=== PATIENT | male | born 1980 | race Caucasian/White ===

== ENCOUNTER 2021-02-17 10:52 | Inpatient (IN) | payer OTHER ==
[2021-02-17] MEDS ORDERED: Sodium Chloride 0.9% 10 ML Syringe FLUSH PRN ×3 (10:58→14:26)
[2021-02-17] MEDS ORDERED: Prochlorperazine 10 MG/2 ML SDV IVPUSH ONE (11:03)
--- NOTE | 2021-02-17 11:05 | EDM.PDOC ---
ED HPI GENERAL MEDICAL PROBLEM - General Chief Complaint: Diabetic Complaint Stated Complaint: MED[facility] Time Seen by Provider: 02/17/21 10:54 Source of Information: Reports: Patient, EMS, RN Notes Reviewed History Limitations: Reports: No Limitations - History of Present Illness INITIAL COMMENTS - FREE TEXT/NARRATIVE: 40-year-old gentleman presents emergency department day complaint of nausea and vomiting, he is a type I diabetic states he just got sick last night has had difficulty through the night with nausea and vomiting his blood sugar has been running high initial EMS reports greater than 500 he states he has not had a blood sugar that high since initial diagnosis of diabetes. Denies any fever no shortness of breath no chest pain no diarrhea - Related Data Allergies Allergy/AdvReac Type Severity Reaction Status Date / Time codeine Allergy Cannot Verified 02/17/21 10:58 Remember Home Meds: Home Meds Insulin Glarg,Human.Rec.Analog [Lantus Solostar] 1 injection SQ BEDTIME 02/17/21 [History] Insulin Lispro [Humalog] 1 injection SQ TID 02/17/21 [History] metFORMIN [Glucophage] 1 tab PO DAILY PRN 02/17/21 [History] Past Medical History Endocrine/Metabolic History: Reports: Diabetes, Type I Social & Family History - Tobacco Use Tobacco Use Status *Q: Never Tobacco User ED ROS GENERAL - Review of Systems Review Of Systems: See Below Constitutional: Denies: Fever, Chills HEENT: Reports: No Symptoms Respiratory: Reports: No Symptoms Cardiovascular: Reports: No Symptoms GI/Abdominal: Reports: Nausea, Vomiting. Denies: Abdominal Pain : Reports: No Symptoms ED EXAM GENERAL NO PERIP PULSE - Physical Exam Exam: See Below Exam Limited By: No Limitations General Appearance: Alert, WD/WN, No Apparent Distress Respiratory/Chest: No Respiratory Distress, Lungs Clear, Normal Breath Sounds, No Accessory Muscle Use, Chest Non-Tender Cardiovascular: Regular Rate, Rhythm, No Murmur GI/Abdominal: Soft, Non-Tender Extremities: No Pedal Edema Course - Vital Signs Last Recorded V/S: Last Vital Signs Temp 97.9 F 02/17/21 11:06 Pulse 94 02/17/21 11:06 Resp 15 02/17/21 11:06 BP 139/45 L 02/17/21 11:06 Pulse Ox 100 02/17/21 11:06 - Orders/Labs/Meds Orders: Active Orders 24 hr Category Date Time Status Blood Glucose Check, Bedside [RC] STAT Care 02/17/21 10:58 Active Cardiac Monitoring [RC] CONTINUOUS Care 02/17/21 10:58 Active Communication Order [RC] STAT Care 02/17/21 10:58 Active Communication Order [RC] STAT Care 02/17/21 10:58 Active EKG Documentation Completion [RC] ASDIRECTED Care 02/17/21 12:17 Ordered Peripheral IV Care [RC] . DIRECTED Care 02/17/21 10:58 Active Abdomen Pelvis w Cont [CT] Stat Exams 02/17/21 12:17 Ordered Chest 1V Frontal [CR] Urgent Exams 02/17/21 12:16 Ordered CULTURE BLOOD [BC] Urgent Lab 02/17/21 11:20 Received CULTURE BLOOD [BC] Urgent Lab 02/17/21 11:20 Received Insulin Regular in 0.9 % NACL [Myxredlin in NS 100 UNIT Med 02/17/21 11:15 Active /100 ML] 100 unit in 100 ml IV ASDIRECTED Piperacillin/Tazobactam [Zosyn] 4.5 gm Med 02/17/21 12:17 Ordered Sodium Chloride 0.9% [Normal Saline] 100 ml IV ONETIME Sodium Chloride 0.9% [Normal Saline] 1,000 ml Med 02/17/21 11:15 Active IV ASDIRECTED Sodium Chloride 0.9% [Saline Flush] Med 02/17/21 10:58 Active 10 ml FLUSH ASDIRECTED PRN Vancomycin 1 gm Med 02/17/21 12:17 Ordered Sodium Chloride 0.9% [Normal Saline] 250 ml IV ONETIME Blood Culture x2 Reflex Set [OM.PC] Urgent Oth 02/17/21 10:58 Ordered Peripheral IV Insertion Adult [OM.PC] Stat Oth 02/17/21 10:58 Ordered EKG 12 Lead [EK] Stat Ther 02/17/21 12:16 Ordered Medication Orders Sodium Chloride (Normal Saline) 1,000 mls @ 500 mls/hr IV ASDIRECTED [facility] Last Admin: 02/17/21 11:25 Dose: 500 mls/hr Documented by: WALKER Insulin Regular in 0.9 % NACL (Myxredlin In Ns 100 Unit/100 Ml) 100 unit in 100 mls @ 10.796 mls/hr IV ASDIRECTED [facility] Last Admin: 02/17/21 11:25 Dose: 0.14 units/kg/hr, 10.796 mls/hr Documented by: WALKER Cosigned by: MEME Piperacillin Sod/Tazobactam (Sod 4.5 gm/ Sodium Chloride) 100 mls @ 100 mls/hr IV ONETIME ONE Stop: 02/17/21 13:16 Vancomycin HCl 1 gm/ Sodium (Chloride) 250 mls @ 150 mls/hr IV ONETIME ONE Stop: 02/17/21 13:56 Sodium Chloride (Sodium Chloride 0.9% 10 Ml Syringe) 10 ml FLUSH ASDIRECTED PRN PRN Reason: Keep Vein Open Last Admin: 02/17/21 11:26 Dose: 10 ml Documented by: WALKER Labs: Laboratory Tests 02/17/21 02/17/21 02/17/21 Range/Units 10:58 11:20 11:20 WBC 29.2 H (4.5-11.0) K/uL RBC 4.91 (4.30-5.90) M/uL Hgb 15.0 (12.0-15.0) g/dL Hct 42.7 (40.0-54.0) % MCV 87 (80-98) fL MCH 31 (27-31) pg MCHC 35 (32-36) % Plt Count 359 (150-400) K/uL Neut % (Auto) 89.9 H (36-66) % Lymph % (Auto) 2.6 L (24-44) % [place] % (Auto) 7.4 H (2-6) % Eos % (Auto) 0.0 L (2-4) % Baso % (Auto) 0.1 (0-1) % Puncture Site Rt brachial ABG pH 7.079 L* (7.350-7.450) ABG pCO2 13.6 L* (35.0-42.0) mmHg ABG pO2 133.0 H (75.0-100.0) mmHg ABG HCO3 3.8 L (22.0-26.0) mmol/L ABG Total CO2 3.7 L (23.0-27.0) mmol/L ABG O2 Saturation 97.5 (95.0-98.0) % ABG O2 Content 21.3 (15.0-23.0) %vol ABG Base Excess -26.5 mm/L ABG Hemoglobin 15.8 (13.5-18.0) g/dL ABG Oxyhemoglobin 95.4 % ABG Carboxyhemoglobin 0.9 (0.0-1.6) % ABG Methemoglobin 1.3 % Jeovanny Test Not performed O2 Delivery Device Room air Sodium (140-148) mmol/L Potassium (3.6-5.2) mmol/L Chloride (100-108) mmol/L Carbon Dioxide (21-32) mmol/L Anion Gap (5.0-14.0) mmol/L BUN (7-18) mg/dL Creatinine (0.8-1.3) mg/dL Est Cr Clr Drug Dosing mL/min Estimated GFR (MDRD) (>60) Glucose (74-106) mg/dL Lactic Acid (0.4-2.0) mmol/L Calcium (8.5-10.1) mg/dL Phosphorus (2.5-4.9) mg/dL Magnesium (1.8-2.4) mg/dL Total Bilirubin (0.2-1.0) mg/dL AST (15-37) U/L ALT (12-78) U/L Alkaline Phosphatase (46-116) U/L Total Protein (6.4-8.2) g/dL Albumin (3.4-5.0) g/dL Globulin (2.3-3.5) g/dL Albumin/Globulin Ratio (1.2-2.2) Procalcitonin ng/mL Urine Color Yellow (YELLOW) Urine Appearance Clear (CLEAR) Urine pH 5.0 (5.0-8.0) Ur Specific Jarrell 1.025 (1.008-1.030) Urine Protein 30 H (NEGATIVE) mg/dL Urine Glucose (UA) 500 H (NEGATIVE) mg/dL Urine Ketones 80 H (NEGATIVE) mg/dL Urine Occult Blood Moderate H (NEGATIVE) Urine Nitrite Negative (NEGATIVE) Urine Bilirubin Negative (NEGATIVE) Urine Urobilinogen 0.2 (0.2-1.0) EU/dL Ur Leukocyte Esterase Negative (NEGATIVE) Urine RBC 0-5 (0-5) Urine WBC Not seen (0-5) Ur Epithelial Cells Not seen Amorphous Sediment Rare Urine Bacteria Not seen Urine Mucus Not seen Ketones (NEGATIVE) 02/17/21 02/17/21 02/17/21 Range/Units 11:20 11:20 11:20 WBC (4.5-11.0) K/uL RBC (4.30-5.90) M/uL Hgb (12.0-15.0) g/dL Hct (40.0-54.0) % MCV (80-98) fL MCH (27-31) pg MCHC (32-36) % Plt Count (150-400) K/uL Neut % (Auto) (36-66) % Lymph % (Auto) (24-44) % [place] % (Auto) (2-6) % Eos % (Auto) (2-4) % Baso % (Auto) (0-1) % Puncture Site ABG pH (7.350-7.450) ABG pCO2 (35.0-42.0) mmHg ABG pO2 (75.0-100.0) mmHg ABG HCO3 (22.0-26.0) mmol/L ABG Total CO2 (23.0-27.0) mmol/L ABG O2 Saturation (95.0-98.0) % ABG O2 Content (15.0-23.0) %vol ABG Base Excess mm/L ABG Hemoglobin (13.5-18.0) g/dL ABG Oxyhemoglobin % ABG Carboxyhemoglobin (0.0-1.6) % ABG Methemoglobin % Jeovanny Test O2 Delivery Device Sodium 128 L (140-148) mmol/L Potassium 6.4 H* (3.6-5.2) mmol/L Chloride 91 L (100-108) mmol/L Carbon Dioxide 7 L (21-32) mmol/L Anion Gap 36.4 H (5.0-14.0) mmol/L BUN 35 H (7-18) mg/dL Creatinine 1.8 H (0.8-1.3) mg/dL Est Cr Clr Drug Dosing 60.09 mL/min Estimated GFR (MDRD) 42 L (>60) Glucose 572 H* (74-106) mg/dL Lactic Acid 5.1 H (0.4-2.0) mmol/L Calcium 8.8 (8.5-10.1) mg/dL Phosphorus 6.4 H (2.5-4.9) mg/dL Magnesium 2.4 (1.8-2.4) mg/dL Total Bilirubin 0.6 (0.2-1.0) mg/dL AST 22 (15-37) U/L ALT 38 (12-78) U/L Alkaline Phosphatase 146 H (46-116) U/L Total Protein 7.5 (6.4-8.2) g/dL Albumin 4.1 (3.4-5.0) g/dL Globulin 3.4 (2.3-3.5) g/dL Albumin/Globulin Ratio 1.2 (1.2-2.2) Procalcitonin ng/mL Urine Color (YELLOW) Urine Appearance (CLEAR) Urine pH (5.0-8.0) Ur Specific [place] (1.008-1.030) Urine Protein (NEGATIVE) mg/dL Urine Glucose (UA) (NEGATIVE) mg/dL Urine Ketones (NEGATIVE) mg/dL Urine Occult Blood (NEGATIVE) Urine Nitrite (NEGATIVE) Urine Bilirubin (NEGATIVE) Urine Urobilinogen (0.2-1.0) EU/dL Ur Leukocyte Esterase (NEGATIVE) Urine RBC (0-5) Urine WBC (0-5) Ur Epithelial Cells Amorphous Sediment Urine Bacteria Urine Mucus Ketones Small H (NEGATIVE) 02/17/21 Range/Units 11:20 WBC (4.5-11.0) K/uL RBC (4.30-5.90) M/uL Hgb (12.0-15.0) g/dL Hct (40.0-54.0) % MCV (80-98) fL MCH (27-31) pg MCHC (32-36) % Plt Count (150-400) K/uL Neut % (Auto) (36-66) % Lymph % (Auto) (24-44) % [place] % (Auto) (2-6) % Eos % (Auto) (2-4) % Baso % (Auto) (0-1) % Puncture Site ABG pH (7.350-7.450) ABG pCO2 (35.0-42.0) mmHg ABG pO2 (75.0-100.0) mmHg ABG HCO3 (22.0-26.0) mmol/L ABG Total CO2 (23.0-27.0) mmol/L ABG O2 Saturation (95.0-98.0) % ABG O2 Content (15.0-23.0) %vol ABG Base Excess mm/L ABG Hemoglobin (13.5-18.0) g/dL ABG Oxyhemoglobin % ABG Carboxyhemoglobin (0.0-1.6) % ABG Methemoglobin % Jeovanny Test O2 Delivery Device Sodium (140-148) mmol/L Potassium (3.6-5.2) mmol/L Chloride (100-108) mmol/L Carbon Dioxide (21-32) mmol/L Anion Gap (5.0-14.0) mmol/L BUN (7-18) mg/dL Creatinine (0.8-1.3) mg/dL Est Cr Clr Drug Dosing mL/min Estimated GFR (MDRD) (>60) Glucose (74-106) mg/dL Lactic Acid (0.4-2.0) mmol/L Calcium (8.5-10.1) mg/dL Phosphorus (2.5-4.9) mg/dL Magnesium (1.8-2.4) mg/dL Total Bilirubin (0.2-1.0) mg/dL AST (15-37) U/L ALT (12-78) U/L Alkaline Phosphatase (46-116) U/L Total Protein (6.4-8.2) g/dL Albumin (3.4-5.0) g/dL Globulin (2.3-3.5) g/dL Albumin/Globulin Ratio (1.2-2.2) Procalcitonin 0.45 ng/mL Urine Color (YELLOW) Urine Appearance (CLEAR) Urine pH (5.0-8.0) Ur Specific [place] (1.008-1.030) Urine Protein (NEGATIVE) mg/dL Urine Glucose (UA) (NEGATIVE) mg/dL Urine Ketones (NEGATIVE) mg/dL Urine Occult Blood (NEGATIVE) Urine Nitrite (NEGATIVE) Urine Bilirubin (NEGATIVE) Urine Urobilinogen (0.2-1.0) EU/dL Ur Leukocyte Esterase (NEGATIVE) Urine RBC (0-5) Urine WBC (0-5) Ur Epithelial Cells Amorphous Sediment Urine Bacteria Urine Mucus Ketones (NEGATIVE) Meds: Medications Generic Name Dose Route Start Last Admin Trade Name Freq PRN Reason Stop Dose Admin Sodium Chloride 1,000 mls @ 500 mls/hr 02/17/21 11:15 02/17/21 11:25 Normal Saline IV 500 mls/hr ASDIRECTED CARI Administration Insulin Regular in 0.9 % NACL 100 unit in 100 mls @ 10.796 mls/hr 02/17/21 11:15 02/17/21 11:25 Myxredlin In Ns 100 Unit/100 Ml IV 0.14 units/kg/hr ASDIRECTED CARI 10.796 mls/hr Administration 0.14 UNITS/KG/HR Piperacillin Sod/Tazobactam 100 mls @ 100 mls/hr 02/17/21 12:17 Sod 4.5 gm/ Sodium Chloride IV 02/17/21 13:16 ONETIME ONE Vancomycin HCl 1 gm/ Sodium 250 mls @ 150 mls/hr 02/17/21 12:17 Chloride IV 02/17/21 13:56 ONETIME ONE Sodium Chloride 10 ml 02/17/21 10:58 02/17/21 11:26 Sodium Chloride 0.9% 10 Ml Syringe FLUSH 10 ml ASDIRECTED PRN Administration Keep Vein Open Discontinued Medications Generic Name Dose Route Start Last Admin Trade Name Freq PRN Reason Stop Dose Admin Prochlorperazine Edisylate 5 mg 02/17/21 11:03 02/17/21 11:26 Prochlorperazine 10 Mg/2 Ml Sdv IVPUSH 02/17/21 11:04 5 mg ONETIME ONE Administration Departure - Departure Time of Disposition: 12:26 Disposition: Admitted As Inpatient 67 Condition: Fair Clinical Impression: DKA (diabetic ketoacidosis) Qualifiers: Diabetes mellitus type: type 1 Diabetes mellitus complication detail: without coma Qualified Code(s): E10.10 - Type 1 diabetes mellitus with ketoacidosis without coma - Discharge Information Forms: ED Department Discharge Critical Care Note - Critical Care Note Total Time (mins): 35 Sepsis Event Note (ED) - Focused Exam Vital Signs: Vital Signs Temp Pulse Resp BP Pulse Ox 02/17/21 11:06 97.9 F 94 15 139/45 L 100 02/17/21 10:59 97.9 F 94 15 139/45 L 100 - My Orders Last 24 Hours: My Active Orders 02/17/21 10:58 Blood Glucose Check, Bedside [RC] STAT Cardiac Monitoring [RC] CONTINUOUS Communication Order [RC] STAT Communication Order [RC] STAT Peripheral IV Care [RC] . DIRECTED Sodium Chloride 0.9% [Saline Flush] 10 ml FLUSH ASDIRECTED PRN Blood Culture x2 Reflex Set [OM.PC] Urgent Peripheral IV Insertion Adult [OM.PC] Stat 02/17/21 11:15 Insulin Regular in 0.9 % NACL [Myxredlin in NS 100 UNIT/100 ML] 100 unit in 100 ml IV ASDIRECTED Sodium Chloride 0.9% [Normal Saline] 1,000 ml IV ASDIRECTED 02/17/21 11:20 CULTURE BLOOD [BC] Urgent CULTURE BLOOD [BC] Urgent 02/17/21 12:16 Chest 1V Frontal [CR] Urgent EKG 12 Lead [EK] Stat 02/17/21 12:17 EKG Documentation Completion [RC] ASDIRECTED Abdomen Pelvis w Cont [CT] Stat Piperacillin/Tazobactam [Zosyn] 4.5 gm Sodium Chloride 0.9% [Normal Saline] 100 ml IV ONETIME Vancomycin 1 gm Sodium Chloride 0.9% [Normal Saline] 250 ml IV ONETIME - Assessment/Plan Last 24 Hours: My Active Orders 02/17/21 10:58 Blood Glucose Check, Bedside [RC] STAT Cardiac Monitoring [RC] CONTINUOUS Communication Order [RC] STAT Communication Order [RC] STAT Peripheral IV Care [RC] . DIRECTED Sodium Chloride 0.9% [Saline Flush] 10 ml FLUSH ASDIRECTED PRN Blood Culture x2 Reflex Set [OM.PC] Urgent Peripheral IV Insertion Adult [OM.PC] Stat 02/17/21 11:15 Insulin Regular in 0.9 % NACL [Myxredlin in NS 100 UNIT/100 ML] 100 unit in 100 ml IV ASDIRECTED Sodium Chloride 0.9% [Normal Saline] 1,000 ml IV ASDIRECTED 02/17/21 11:20 CULTURE BLOOD [BC] Urgent CULTURE BLOOD [BC] Urgent 02/17/21 12:16 Chest 1V Frontal [CR] Urgent EKG 12 Lead [EK] Stat 02/17/21 12:17 EKG Documentation Completion [RC] ASDIRECTED Abdomen Pelvis w Cont [CT] Stat Piperacillin/Tazobactam [Zosyn] 4.5 gm Sodium Chloride 0.9% [Normal Saline] 100 ml IV ONETIME Vancomycin 1 gm Sodium Chloride 0.9% [Normal Saline] 250 ml IV ONETIME Plan: Assessment Acuity = acute Site and laterality = diabetic ketoacidosis Etiology = unknown Manifestations = nausea vomiting Location of injury = Home Lab values = WBC elevated 29.9 consistent leukocytosis, pH 7.079 PCO2 13.6 and bicarb 3.8 consistent with metabolic acidosis sodium low at 128 corrected to 136, potassium elevated 6.4 consistent hyperkalemia creatinine elevated 1.8 consistent with acute renal failure stage G3 B lactic acid elevated 5.1 consistent lactic acidosis glucose elevated 572 procalcitonin 0.45 ketones are small urinalysis 1.025 with 500 glucose consistent with glucosuria and dehydration blood cultures EKG chest x-ray CT scan pending Plan Call discussed case hospitalist on-call at 1220 he currently agreed to come evaluate patient emergency department for admission, insulin insulin drip no bolus initiated as well as first liter of fluids, no identifiable source has been identified broad-spectrum antibiotics initiated Zosyn and vancomycin This note was dictated using [email or web address] voice recognition software please call with any questions on syntax or grammar.
[2021-02-17] MEDS ORDERED: Sodium Chloride 0.9% 1,000 ML IV SCH (11:15)
[2021-02-17] MEDS ORDERED: Piperacillin/Tazobactam 4.5 GM in Sodium Chloride 0.9% 100 ML IV ONE (12:17)
[2021-02-17] MEDS ORDERED: Piperacillin/Tazobactam/Dext 4.5 GM in Premix Bag 1 BAG IV ONE (12:30)
--- NOTE | 2021-02-17 12:50 | PCM.HP.2 ---
H&P History of Present Illness - General Date of Service: 02/17/21 Admit Problem/Dx: Admission Diagnosis/Problem Admission Diagnosis/Problem Ketoacidosis Source of Information: Patient, Provider, RN Notes Reviewed History Limitations: Reports: No Limitations - History of Present Illness Initial Comments - Free Text/Narative: Mr. Vega is a 40-year-old gentleman who was admitted through the emergency department with nausea, vomiting, weakness, hyperglycemia, secondary to ketoacidosis and lactic acidosis. He has a known history of type 1 diabetes which he reports has been very well controlled, most recent hemoglobin A1c was 7.1. He is never experienced ketoacidosis prior to this. He awoke about midnight last night with acute onset of nausea vomiting and diarrhea. He denies significant abdominal pain. His hemoglobin when he checked this morning was elevated at greater than 500 and he presents to the emergency department for further evaluation and management. He is found to have elevated creatinine level, he is denies prior history of chronic kidney disease. Potassium is elevated at 6.4 and lactic acid at 5. pH is significantly decreased as is the b icarbonate level. He does have significant respiratory compensation with a PCO2 of 13. White blood cell count is significantly elevated at 24,000. He has been given vigorous IV fluid replacement while in the emergency department and started on a continuous infusion of insulin. Blood cultures have been obtained and empiric antibiotic therapy started with vancomycin and Zosyn. CT scan of the abdomen is pending to evaluate for underlying source of infection. - Related Data Allergies/Adverse Reactions: Allergies Allergy/AdvReac Type Severity Reaction Status Date / Time codeine Allergy Cannot Verified 02/17/21 10:58 Remember Home Medications: Home Meds Insulin Glarg,Human.Rec.Analog [Lantus Solostar] 1 injection SQ BEDTIME 02/17/21 [History] Insulin Lispro [Humalog] 1 injection SQ TID 02/17/21 [History] metFORMIN [Glucophage] 1 tab PO DAILY PRN 02/17/21 [History] Past Medical History Endocrine/Metabolic History: Reports: Diabetes, Type I Social & Family History - Tobacco Use Tobacco Use Status *Q: Never Tobacco User H&P Review of Systems - Review of Systems: Review Of Systems: See Below General: Reports: Weakness, Fatigue. Denies: Fever, Chills HEENT: Reports: No Symptoms Pulmonary: Reports: No Symptoms Cardiovascular: Reports: No Symptoms Gastrointestinal: Reports: Diarrhea, Nausea, Vomiting. Denies: Abdominal Pain, Constipation, Difficulty Swallowing, Distension, Hematemesis, Hematochezia, Melena Genitourinary: Reports: No Symptoms Musculoskeletal: Reports: No Symptoms Skin: Reports: No Symptoms Psychiatric: Reports: No Symptoms Neurological: Reports: No Symptoms Hematologic/Lymphatic: Reports: No Symptoms Immunologic: Reports: No Symptoms Exam - Exam Exam: See Below - Vital Signs Vital Signs: Last Vital Signs Temp 97.9 F 02/17/21 11:06 Pulse 94 02/17/21 11:06 Resp 15 02/17/21 11:06 BP 139/45 L 02/17/21 11:06 Pulse Ox 100 02/17/21 11:06 Weight: 170 lb - Exam Quality Assessment: DVT Prophylaxis General: Alert, Oriented, Cooperative, Moderate Distress HEENT: Conjunctiva Clear, Hearing Intact, Mucosa Moist & [place], Normal Nasal Septum, Posterior Pharynx Clear, Pupils Equal Neck: Supple, Trachea Midline, +2 Carotid Pulse wo Bruit Lungs: Clear to Auscultation, Normal Respiratory Effort Cardiovascular: Regular Rhythm, Normal S1, Normal S2, Tachycardia. No: Systolic Murmur, Diastolic Murmur GI/Abdominal Exam: Soft, Non-Tender, No Organomegaly, No Distention Back Exam: Normal Inspection, Full Range of Motion Extremities: Non-Tender, No Pedal Edema Skin: Warm, Dry, Intact Neurological: Cranial Nerves Intact, Strength Equal Bilateral, Normal Speech, Normal Tone, Sensation Intact. No: Focal Deficit Neuro Extensive - Mental Status: Alert, Oriented x3, Normal Mood/Affect, Normal Cognition, Memory Intact - Patient Data Lab Results Last 24 hrs: Laboratory Results - last 24 hr 02/17/21 02/17/21 02/17/21 Range/Units 10:58 11:20 11:20 WBC 29.2 H (4.5-11.0) K/uL RBC 4.91 (4.30-5.90) M/uL Hgb 15.0 (12.0-15.0) g/dL Hct 42.7 (40.0-54.0) % MCV 87 (80-98) fL MCH 31 (27-31) pg MCHC 35 (32-36) % Plt Count 359 (150-400) K/uL Neut % (Auto) 89.9 H (36-66) % Lymph % (Auto) 2.6 L (24-44) % [place] % (Auto) 7.4 H (2-6) % Eos % (Auto) 0.0 L (2-4) % Baso % (Auto) 0.1 (0-1) % Puncture Site Rt brachial ABG pH 7.079 L* (7.350-7.450) ABG pCO2 13.6 L* (35.0-42.0) mmHg ABG pO2 133.0 H (75.0-100.0) mmHg ABG HCO3 3.8 L (22.0-26.0) mmol/L ABG Total CO2 3.7 L (23.0-27.0) mmol/L ABG O2 Saturation 97.5 (95.0-98.0) % ABG O2 Content 21.3 (15.0-23.0) %vol ABG Base Excess -26.5 mm/L ABG Hemoglobin 15.8 (13.5-18.0) g/dL ABG Oxyhemoglobin 95.4 % ABG Carboxyhemoglobin 0.9 (0.0-1.6) % ABG Methemoglobin 1.3 % Jeovanny Test Not performed O2 Delivery Device Room air Sodium (140-148) mmol/L Potassium (3.6-5.2) mmol/L Chloride (100-108) mmol/L Carbon Dioxide (21-32) mmol/L Anion Gap (5.0-14.0) mmol/L BUN (7-18) mg/dL Creatinine (0.8-1.3) mg/dL Est Cr Clr Drug Dosing mL/min Estimated GFR (MDRD) (>60) Glucose (74-106) mg/dL Lactic Acid (0.4-2.0) mmol/L Calcium (8.5-10.1) mg/dL Phosphorus (2.5-4.9) mg/dL Magnesium (1.8-2.4) mg/dL Total Bilirubin (0.2-1.0) mg/dL AST (15-37) U/L ALT (12-78) U/L Alkaline Phosphatase (46-116) U/L Total Protein (6.4-8.2) g/dL Albumin (3.4-5.0) g/dL Globulin (2.3-3.5) g/dL Albumin/Globulin Ratio (1.2-2.2) Procalcitonin ng/mL Urine Color Yellow (YELLOW) Urine Appearance Clear (CLEAR) Urine pH 5.0 (5.0-8.0) Ur Specific Fox 1.025 (1.008-1.030) Urine Protein 30 H (NEGATIVE) mg/dL Urine Glucose (UA) 500 H (NEGATIVE) mg/dL Urine Ketones 80 H (NEGATIVE) mg/dL Urine Occult Blood Moderate H (NEGATIVE) Urine Nitrite Negative (NEGATIVE) Urine Bilirubin Negative (NEGATIVE) Urine Urobilinogen 0.2 (0.2-1.0) EU/dL Ur Leukocyte Esterase Negative (NEGATIVE) Urine RBC 0-5 (0-5) Urine WBC Not seen (0-5) Ur Epithelial Cells Not seen Amorphous Sediment Rare Urine Bacteria Not seen Urine Mucus Not seen Ketones (NEGATIVE) 02/17/21 02/17/21 02/17/21 Range/Units 11:20 11:20 11:20 WBC (4.5-11.0) K/uL RBC (4.30-5.90) M/uL Hgb (12.0-15.0) g/dL Hct (40.0-54.0) % MCV (80-98) fL MCH (27-31) pg MCHC (32-36) % Plt Count (150-400) K/uL Neut % (Auto) (36-66) % Lymph % (Auto) (24-44) % [place] % (Auto) (2-6) % Eos % (Auto) (2-4) % Baso % (Auto) (0-1) % Puncture Site ABG pH (7.350-7.450) ABG pCO2 (35.0-42.0) mmHg ABG pO2 (75.0-100.0) mmHg ABG HCO3 (22.0-26.0) mmol/L ABG Total CO2 (23.0-27.0) mmol/L ABG O2 Saturation (95.0-98.0) % ABG O2 Content (15.0-23.0) %vol ABG Base Excess mm/L ABG Hemoglobin (13.5-18.0) g/dL ABG Oxyhemoglobin % ABG Carboxyhemoglobin (0.0-1.6) % ABG Methemoglobin % Jeovanny Test O2 Delivery Device Sodium 128 L (140-148) mmol/L Potassium 6.4 H* (3.6-5.2) mmol/L Chloride 91 L (100-108) mmol/L Carbon Dioxide 7 L (21-32) mmol/L Anion Gap 36.4 H (5.0-14.0) mmol/L BUN 35 H (7-18) mg/dL Creatinine 1.8 H (0.8-1.3) mg/dL Est Cr Clr Drug Dosing 60.09 mL/min Estimated GFR (MDRD) 42 L (>60) Glucose 572 H* (74-106) mg/dL Lactic Acid 5.1 H (0.4-2.0) mmol/L Calcium 8.8 (8.5-10.1) mg/dL Phosphorus 6.4 H (2.5-4.9) mg/dL Magnesium 2.4 (1.8-2.4) mg/dL Total Bilirubin 0.6 (0.2-1.0) mg/dL AST 22 (15-37) U/L ALT 38 (12-78) U/L Alkaline Phosphatase 146 H (46-116) U/L Total Protein 7.5 (6.4-8.2) g/dL Albumin 4.1 (3.4-5.0) g/dL Globulin 3.4 (2.3-3.5) g/dL Albumin/Globulin Ratio 1.2 (1.2-2.2) Procalcitonin ng/mL Urine Color (YELLOW) Urine Appearance (CLEAR) Urine pH (5.0-8.0) Ur Specific Fox (1.008-1.030) Urine Protein (NEGATIVE) mg/dL Urine Glucose (UA) (NEGATIVE) mg/dL Urine Ketones (NEGATIVE) mg/dL Urine Occult Blood (NEGATIVE) Urine Nitrite (NEGATIVE) Urine Bilirubin (NEGATIVE) Urine Urobilinogen (0.2-1.0) EU/dL Ur Leukocyte Esterase (NEGATIVE) Urine RBC (0-5) Urine WBC (0-5) Ur Epithelial Cells Amorphous Sediment Urine Bacteria Urine Mucus Ketones Small H (NEGATIVE) 02/17/21 Range/Units 11:20 WBC (4.5-11.0) K/uL RBC (4.30-5.90) M/uL Hgb (12.0-15.0) g/dL Hct (40.0-54.0) % MCV (80-98) fL MCH (27-31) pg MCHC (32-36) % Plt Count (150-400) K/uL Neut % (Auto) (36-66) % Lymph % (Auto) (24-44) % [place] % (Auto) (2-6) % Eos % (Auto) (2-4) % Baso % (Auto) (0-1) % Puncture Site ABG pH (7.350-7.450) ABG pCO2 (35.0-42.0) mmHg ABG pO2 (75.0-100.0) mmHg ABG HCO3 (22.0-26.0) mmol/L ABG Total CO2 (23.0-27.0) mmol/L ABG O2 Saturation (95.0-98.0) % ABG O2 Content (15.0-23.0) %vol ABG Base Excess mm/L ABG Hemoglobin (13.5-18.0) g/dL ABG Oxyhemoglobin % ABG Carboxyhemoglobin (0.0-1.6) % ABG Methemoglobin % Jeovanny Test O2 Delivery Device Sodium (140-148) mmol/L Potassium (3.6-5.2) mmol/L Chloride (100-108) mmol/L Carbon Dioxide (21-32) mmol/L Anion Gap (5.0-14.0) mmol/L BUN (7-18) mg/dL Creatinine (0.8-1.3) mg/dL Est Cr Clr Drug Dosing mL/min Estimated GFR (MDRD) (>60) Glucose (74-106) mg/dL Lactic Acid (0.4-2.0) mmol/L Calcium (8.5-10.1) mg/dL Phosphorus (2.5-4.9) mg/dL Magnesium (1.8-2.4) mg/dL Total Bilirubin (0.2-1.0) mg/dL AST (15-37) U/L ALT (12-78) U/L Alkaline Phosphatase (46-116) U/L Total Protein (6.4-8.2) g/dL Albumin (3.4-5.0) g/dL Globulin (2.3-3.5) g/dL Albumin/Globulin Ratio (1.2-2.2) Procalcitonin 0.45 ng/mL Urine Color (YELLOW) Urine Appearance (CLEAR) Urine pH (5.0-8.0) Ur Specific Fox (1.008-1.030) Urine Protein (NEGATIVE) mg/dL Urine Glucose (UA) (NEGATIVE) mg/dL Urine Ketones (NEGATIVE) mg/dL Urine Occult Blood (NEGATIVE) Urine Nitrite (NEGATIVE) Urine Bilirubin (NEGATIVE) Urine Urobilinogen (0.2-1.0) EU/dL Ur Leukocyte Esterase (NEGATIVE) Urine RBC (0-5) Urine WBC (0-5) Ur Epithelial Cells Amorphous Sediment Urine Bacteria Urine Mucus Ketones (NEGATIVE) Result Diagrams: 02/17/21 11:20 02/17/21 11:20 Sepsis Event Note - Evaluation Sepsis Screening Result: No Definite Risk - Focused Exam Vital Signs: Vital Signs Temp Pulse Resp BP Pulse Ox 02/17/21 11:06 97.9 F 94 15 139/45 L 100 02/17/21 10:59 97.9 F 94 15 139/45 L 100 *Q Meaningful Use (ADM) - VTE Risk Assess *Q Each Risk Factor Represents 1 Point: None Total Score 1 Point Risk Factors: 0 Each Risk Factor Represents 2 Points: None Total Score 2 Point Risk Factors: 0 Each Risk Factor Represents 3 Points: None Total Score 3 Point Risk Factors: 0 Each Risk Factor Represents 5 Points: None Total Score 5 Point Risk Factors: 0 Venous Thromboembolism Risk Factor Score *Q: 0 Problem List Initiated/Reviewed/Updated: Yes Orders Last 24hrs: Active Orders 24 hr Category Date Time Status Patient Status Manage Transfer [TRANSFER] Routine ADT 02/17/21 12:20 Ordered Blood Glucose Check, Bedside [RC] STAT Care 02/17/21 10:58 Active Cardiac Monitoring [RC] CONTINUOUS Care 02/17/21 10:58 Active Communication Order [RC] STAT Care 02/17/21 10:58 Active Communication Order [RC] STAT Care 02/17/21 10:58 Active EKG Documentation Completion [RC] ASDIRECTED Care 02/17/21 12:17 Active Peripheral IV Care [RC] . DIRECTED Care 02/17/21 10:58 Active Peripheral IV Care [RC] . DIRECTED Care 02/17/21 12:27 Active Abdomen Pelvis w Cont [CT] Stat Exams 02/17/21 12:17 Ordered Chest 1V Frontal [CR] Urgent Exams 02/17/21 12:16 Ordered CULTURE BLOOD [BC] Urgent Lab 02/17/21 11:20 Received CULTURE BLOOD [BC] Urgent Lab 02/17/21 11:20 Received Insulin Regular in 0.9 % NACL [Myxredlin in NS 100 UNIT Med 02/17/21 11:15 Active /100 ML] 100 unit in 100 ml IV ASDIRECTED Piperacillin/Tazobactam/Dext [Zosyn in Dextrose Iso- Med 02/17/21 12:30 Active Osmotic 4.5 GM/100 ML] 4.5 gm Premix Bag 1 bag IV ONETIME Sodium Chloride 0.9% [Normal Saline] 1,000 ml Med 02/17/21 11:15 Active IV ASDIRECTED Sodium Chloride 0.9% [Saline Flush] Med 02/17/21 10:58 Active 10 ml FLUSH ASDIRECTED PRN Vancomycin 1.6 gm Med 02/17/21 13:00 Active Sodium Chloride 0.9% [Normal Saline] 250 ml IV ONETIME Blood Culture x2 Reflex Set [OM.PC] Urgent Oth 02/17/21 10:58 Ordered Peripheral IV Insertion Adult [OM.PC] Stat Oth 02/17/21 10:58 Ordered Peripheral IV Insertion Adult [OM.PC] Urgent Oth 02/17/21 12:27 Ordered Resuscitation Status Routine Resus Stat 02/17/21 12:40 Ordered EKG 12 Lead [EK] Stat Ther 02/17/21 12:16 Ordered Medication Orders Sodium Chloride (Normal Saline) 1,000 mls @ 500 mls/hr IV ASDIRECTED [facility] Last Admin: 02/17/21 11:25 Dose: 500 mls/hr Documented by: WALKER Insulin Regular in 0.9 % NACL (Myxredlin In Ns 100 Unit/100 Ml) 100 unit in 100 mls @ 10.796 mls/hr IV ASDIRECTED [facility] Last Admin: 02/17/21 11:25 Dose: 0.14 units/kg/hr, 10.796 mls/hr Documented by: WALKER Cosigned by: MEME Piperacillin/Tazobactam/ (Dextrose 4.5 gm/ Premix) 100 mls @ 200 mls/hr IV ONETIME ONE Stop: 02/17/21 12:59 Last Admin: 02/17/21 12:47 Dose: 200 mls/hr Documented by: WALKER Vancomycin HCl 1.6 gm/ Sodium (Chloride) 250 mls @ 167 mls/hr IV ONETIME ONE Stop: 02/17/21 14:29 Sodium Chloride (Sodium Chloride 0.9% 10 Ml Syringe) 10 ml FLUSH ASDIRECTED PRN PRN Reason: Keep Vein Open Last Admin: 02/17/21 11:26 Dose: 10 ml Documented by: WALKER Assessment/Plan Comment:: ASSESSMENT AND PLAN MIXED METABOLIC ACIDOSIS-evidence of ketoacidosis as well as Actiq acidosis. Ketoacidosis secondary to hyperglycemia and type 1 diabetes mellitus. Lactic acidosis likely secondary to dehydration, cannot rule out underlying infection. Symptoms have mainly been GI in nature with nausea vomiting and diarrhea, no abdominal pain. Evaluation has been negative thus far for underlying infection except for elevated white blood cell count. -IV fluids per ketoacidosis protocol -IV insulin per IV insulin protocol -Laboratory tests and management of electrolytes per ketoacidosis protocol -Blood cultures pending -CT abdomen/pelvis and chest x-ray pending -Empiric antibiotic therapy; Zosyn and vancomycin pending culture results and further evaluation -Transition to subcutaneous insulin after ketoacidosis has resolved -Consistent carbohydrate diet TYPE 1 DIABETES MELLITUS -Management as above HYPERKALEMIA -EKG pending -Closely monitor potassium level ACUTE KIDNEY INJURY-likely related to dehydration and intravascular volume depletion -IV fluids as above -Closely monitor urine output and renal function MAINTENANCE ISSUES -DVT prophylaxis; SCUDs -GI prophylaxis; not indicated -Keen catheter; not indicated -Nutrition; consistent carbohydrate diet -Nicotine dependence; not required CODE STATUS-FULL CODE ADMISSION STATUS-patient will be admitted to inpatient status, expect at least a 2 night hospital stay for evaluation and management of problems as outlined above. At the time of this admission I do not reasonably expected evaluation and management of this problem will require more than a 96 hour hospital stay. DISPOSITION-anticipate discharge to home after the hospital stay. PRIMARY CARE PROVIDER-patient is visiting from outside the local area, he receives primary care at home - Mortality Measure Prognosis:: Good
[2021-02-17] MEDS ORDERED: Vancomycin 1.6 GM in Sodium Chloride 0.9% 250 ML IV ONE ×4 (13:00)
[2021-02-17] MEDS ORDERED: Ondansetron 4 MG/2 ML SDV IV PRN (14:26)
[2021-02-17] MEDS ORDERED: Magnesium Sulfate/Water 50 ML IV PRN (14:26)
[2021-02-17] MEDS ORDERED: Acetaminophen 325 MG Tab PO PRN (14:26)
[2021-02-17] MEDS ORDERED: 50% Dextrose in Water 50 ML Syringe IVPUSH PRN (14:26)
[2021-02-17] MEDS ORDERED: Sodium Chloride 0.9% 2,000 ML IV PRN (14:26)
[2021-02-17] MEDS ORDERED: Potassium Chloride 20 MEQ in Premix Bag 1 BAG IV PRN ×6 (14:26)
[2021-02-17] MEDS ORDERED: Vancomycin 1 GM SDV IV SCH (14:26)
[2021-02-17] MEDS ORDERED: Potassium Chloride 10% 20 MEQ/15 ML Soln 15 ML UD Cup PO PRN ×2 (14:26)
[2021-02-17] MEDS ORDERED: Piperacillin/Tazobactam 3.375 GM in Sodium Chloride 0.9% 50 ML IV SCH (14:26)
[2021-02-17] MEDS ORDERED: Sodium Phosphate 60 MMOLE in Sodium Chloride 0.9% 250 ML IV PRN (14:26)
--- NOTE | 2021-02-17 14:47 | CRLCT ---
For Patients: As a result of the Cures Act, medical imaging exams and procedure reports are released immediately into your electronic medical record. You may view this report before your referring provider. If you have questions, please contact your health care provider. Indication: DKA and nausea vomiting Technique: Noncontrast CT abdomen and pelvis Comparison: No comparison Findings: Heart size normal lung bases are clear. Fatty liver. Spleen pancreas gallbladder unremarkable adrenal glands unremarkable. Stomach fluid-filled this slightly distended Kidneys are unremarkable. Prostate gland enlarged urinary bladder unremarkable. Colon is nondistended with bowel wall thickening. No findings for appendicitis No bowel obstruction. No free fluid. No inflammatory change. No suspicious bony lesions. Impression: 1. Bowel wall thickening of the colon which is decompressed. Findings are nonspecific and could be related to nondistended colon or possibly a colitis. 2. Enlarged prostate gland. 3. Fatty liver Please note that all CT scans at this facility use dose modulation, iterative reconstruction, and/or weight-based dosing when appropriate to reduce radiation dose to as low as reasonably achievable. Dictated by Devika Jose MD @ 02/17/2021 2:45:[address] Devika Jose @ Feb 17 2021 2:45PM
[2021-02-17] MEDS: Insulin Regular in 0.9 % NACL 100 ML IV SCH (15:06)
[2021-02-17] MEDS: Dextrose 5%-0.45% NaCl 1,000 ML IV PRN ×2 (16:03→20:59)
[2021-02-17] MEDS: Piperacillin/Tazobactam/Dext 3.375 GM in Premix Bag 1 BAG IV SCH (19:58)
[2021-02-18] MEDS: Piperacillin/Tazobactam/Dext 3.375 GM in Premix Bag 1 BAG IV SCH ×2 (00:59→08:08)
[2021-02-18] MEDS ORDERED: Vancomycin 1.2 GM in Sodium Chloride 0.9% 250 ML IV SCH (02:00)
[2021-02-18] MEDS: Insulin Regular in 0.9 % NACL 100 ML IV SCH (02:06)
[2021-02-18] MEDS: Potassium Chloride 10% 20 MEQ/15 ML Soln 15 ML UD Cup PO PRN ×2 (03:02→07:01)
[2021-02-18] MEDS: Dextrose 5%-0.45% NaCl 1,000 ML IV PRN (05:01)
[2021-02-18] MEDS ORDERED: 50% Dextrose in Water 50 ML Syringe IVPUSH PRN ×2 (08:44→11:19)
[2021-02-18] MEDS ORDERED: Glucagon,Human Recombinant 1 MG Vial IM PRN ×2 (08:44→11:19)
[2021-02-18] MEDS ORDERED: Loratadine 10 MG Tab PO ONE (09:00)
--- NOTE | 2021-02-18 09:45 | CR ---
CHEST: Portable 02/17/2021 at 1:33 PM CLINICAL HISTORY:SOB COMPARISON:None FINDINGS: The heart size, pulmonary vascularity and hilar structures are normal. No infiltrate effusion or pneumothorax is seen. IMPRESSION: No acute cardiopulmonary process.
[2021-02-18] MEDS ORDERED: Insulin Glargine,Human Rec. Analog 100 Units/ML 3 ML Pen SUBCUT SCH (10:00)
[2021-02-18] MEDS ORDERED: Insulin Lispro 100 Unit/ML 3 ML KwikPen SUBCUT SCH ×2 (11:00→12:00)
--- NOTE | 2021-02-18 13:15 | PCM.DCSUM1 ---
Discharge Summary - Hospital Course Brief History: 40-year-old male with history of type 1 diabetes mellitus normally under good control who presented with abdominal pain, nausea, vomiting and diarrhea. He was admitted for management of diabetic ketoacidosis and lactic acidosis along with acute kidney injury. Diagnosis: Stroke: No - Discharge Data Discharge Date: 02/18/21 Discharge Disposition: Home, Self-Care 01 Condition: Good - Referral to Home Health Primary Care Physician: PCP None - Discharge Diagnosis/Problem(s) (1) DKA (diabetic ketoacidosis) SNOMED Code(s): 341438274, 830478811 ICD Code: E11.10 - TYPE 2 DIABETES MELLITUS WITH KETOACIDOSIS WITHOUT COMA Status: Acute Current Visit: Yes Qualifiers: Diabetes mellitus type: type 1 Diabetes mellitus complication detail: without coma Qualified Code(s): E10.10 - Type 1 diabetes mellitus with ketoacidosis without coma - Patient Summary/Data Hospital Course: Carmine presented to the emergency room with abdominal pain, nausea, vomiting and diarrhea. Work-up in the emergency room revealed leukocytosis with a white blood cell count of 26,000. There is evidence for diabetic ketoacidosis with hyperglycemia and metabolic acidosis. There is evidence for acute kidney injury. Infectious work-up was unremarkable but given the significant elevation of his white blood cell count we did elect to cover with antibiotics prophylactically overnight. He was admitted to the intensive care unit and started on an insulin infusion. Serial electrolyte panels were obtained. Overnight following admission there were no acute issues. His symptoms all resolved. His blood sugars trended down and eventually normalized. His anion gap eventually normalized along with his bicarbonate. He has tolerated a regular diet with no difficulties. He has had no further nausea, vomiting or diarrhea. His blood cultures are negative at about 24 hours. White blood cell count has come down to 16,000. Kidney function has improved dramatically and electrolytes have been stable. He may have had a viral gastroenteritis causing his symptoms and exacerbation. There is no evidence for bacterial infection. He has been up and walking around and tolerating a diet so he is stable and safe for discharge at this time. He will be returning home and will follow up if symptoms do not continue to get better or if they get worse. - Patient Instructions Diet: Diabetic Diet Activity: As Tolerated Driving: May Drive Today Showering/Bathing: May Shower Other/Special Instructions: You were in the hospital for management of diabetic ketoacidosis. We did not determine a definite cause for the exacerbation. Your condition has improved with IV fluids and IV insulin. We have transitioned back to subcutaneous insulin. I would recommend that you continue your usual insulin regimen after your return home. You should seek medical attention if your symptoms that prompted evaluation return. - Discharge Plan *PRESCRIPTION DRUG MONITORING PROGRAM REVIEWED*: Not Applicable *COPY OF PRESCRIPTION DRUG MONITORING REPORT IN PATIENT CONCHA: Not Applicable Home Medications: Home Meds Insulin Glarg,Human.Rec.Analog [Lantus Solostar] 1 injection SQ BEDTIME 02/17/21 [History] Insulin Lispro [Humalog] 1 injection SQ TID 02/17/21 [History] metFORMIN [Glucophage] 1 tab PO DAILY PRN 02/17/21 [History] Patient Handouts: Diabetic Ketoacidosis Referrals: PCP,None [Primary Care Provider] - (follow up as needed if your symptoms do not continue to getter better ) - Discharge Summary/Plan Comment DC Time >30 min.: No - Patient Data Vitals - Most Recent: Last Vital Signs Temp 36.8 C 02/18/21 13:00 Pulse 89 02/18/21 13:00 Resp 19 02/18/21 13:00 BP 128/72 02/18/21 13:00 Pulse Ox 99 02/18/21 13:00 Weight - Most Recent: 73.845 kg I&O - Last 24 hours: Intake & Output 02/17/21 02/18/21 02/18/21 22:59 06:59 14:59 Intake Total 4878 1614 480 Output Total 9202 900 725 Balance 2378 714 -245 Lab Results - Last 24 hrs: Laboratory Results - last 24 hr 02/17/21 02/17/21 02/17/21 Range/Units 13:46 14:55 14:55 WBC (4.5-11.0) K/uL RBC (4.30-5.90) M/uL Hgb (12.0-15.0) g/dL Hct (40.0-54.0) % MCV (80-98) fL MCH (27-31) pg MCHC (32-36) % Plt Count (150-400) K/uL Neut % (Auto) (36-66) % Lymph % (Auto) (24-44) % Bell % (Auto) (2-6) % Eos % (Auto) (2-4) % Baso % (Auto) (0-1) % Sodium 129 L (140-148) mmol/L Potassium 6.4 H* (3.6-5.2) mmol/L Chloride 96 L (100-108) mmol/L Carbon Dioxide 9 L (21-32) mmol/L Anion Gap 30.4 H (5.0-14.0) mmol/L BUN 33 H (7-18) mg/dL Creatinine 1.7 H (0.8-1.3) mg/dL Est Cr Clr Drug Dosing 60.41 mL/min Estimated GFR (MDRD) 45 L (>60) Glucose 367 H (74-106) mg/dL POC Glucose 417 H* (74-106) mg/dL Lactic Acid 2.2 H (0.4-2.0) mmol/L Calcium 8.0 L (8.5-10.1) mg/dL Phosphorus 3.2 (2.5-4.9) mg/dL Magnesium 2.1 (1.8-2.4) mg/dL Lipase 25 L (73-393) U/L 02/17/21 02/17/21 02/17/21 Range/Units 14:57 16:06 16:35 WBC (4.5-11.0) K/uL RBC (4.30-5.90) M/uL Hgb (12.0-15.0) g/dL Hct (40.0-54.0) % MCV (80-98) fL MCH (27-31) pg MCHC (32-36) % Plt Count (150-400) K/uL Neut % (Auto) (36-66) % Lymph % (Auto) (24-44) % Bell % (Auto) (2-6) % Eos % (Auto) (2-4) % Baso % (Auto) (0-1) % Sodium (140-148) mmol/L Potassium 5.2 (3.6-5.2) mmol/L Chloride (100-108) mmol/L Carbon Dioxide (21-32) mmol/L Anion Gap (5.0-14.0) mmol/L BUN (7-18) mg/dL Creatinine (0.8-1.3) mg/dL Est Cr Clr Drug Dosing mL/min Estimated GFR (MDRD) (>60) Glucose (74-106) mg/dL POC Glucose 383 H 373 H (74-106) mg/dL Lactic Acid (0.4-2.0) mmol/L Calcium (8.5-10.1) mg/dL Phosphorus (2.5-4.9) mg/dL Magnesium (1.8-2.4) mg/dL Lipase (73-393) U/L 02/17/21 02/17/21 02/17/21 Range/Units 16:54 17:49 18:50 WBC (4.5-11.0) K/uL RBC (4.30-5.90) M/uL Hgb (12.0-15.0) g/dL Hct (40.0-54.0) % MCV (80-98) fL MCH (27-31) pg MCHC (32-36) % Plt Count (150-400) K/uL Neut % (Auto) (36-66) % Lymph % (Auto) (24-44) % Bell % (Auto) (2-6) % Eos % (Auto) (2-4) % Baso % (Auto) (0-1) % Sodium 131 L (140-148) mmol/L Potassium 4.8 (3.6-5.2) mmol/L Chloride 100 (100-108) mmol/L Carbon Dioxide 11 L (21-32) mmol/L Anion Gap 24.8 H (5.0-14.0) mmol/L BUN 28 H (7-18) mg/dL Creatinine 1.7 H (0.8-1.3) mg/dL Est Cr Clr Drug Dosing 60.41 mL/min Estimated GFR (MDRD) 45 L (>60) Glucose 278 H (74-106) mg/dL POC Glucose 301 H 318 H (74-106) mg/dL Lactic Acid (0.4-2.0) mmol/L Calcium 7.6 L (8.5-10.1) mg/dL Phosphorus (2.5-4.9) mg/dL Magnesium (1.8-2.4) mg/dL Lipase (73-393) U/L 02/17/21 02/17/21 02/17/21 Range/Units 18:59 19:57 20:45 WBC (4.5-11.0) K/uL RBC (4.30-5.90) M/uL Hgb (12.0-15.0) g/dL Hct (40.0-54.0) % MCV (80-98) fL MCH (27-31) pg MCHC (32-36) % Plt Count (150-400) K/uL Neut % (Auto) (36-66) % Lymph % (Auto) (24-44) % Bell % (Auto) (2-6) % Eos % (Auto) (2-4) % Baso % (Auto) (0-1) % Sodium (140-148) mmol/L Potassium 4.6 (3.6-5.2) mmol/L Chloride (100-108) mmol/L Carbon Dioxide (21-32) mmol/L Anion Gap (5.0-14.0) mmol/L BUN (7-18) mg/dL Creatinine (0.8-1.3) mg/dL Est Cr Clr Drug Dosing mL/min Estimated GFR (MDRD) (>60) Glucose (74-106) mg/dL POC Glucose 295 H 273 H (74-106) mg/dL Lactic Acid (0.4-2.0) mmol/L Calcium (8.5-10.1) mg/dL Phosphorus 1.4 L (2.5-4.9) mg/dL Magnesium 1.9 (1.8-2.4) mg/dL Lipase (73-393) U/L 02/17/21 02/17/21 02/17/21 Range/Units 20:47 22:05 22:45 WBC (4.5-11.0) K/uL RBC (4.30-5.90) M/uL Hgb (12.0-15.0) g/dL Hct (40.0-54.0) % MCV (80-98) fL MCH (27-31) pg MCHC (32-36) % Plt Count (150-400) K/uL Neut % (Auto) (36-66) % Lymph % (Auto) (24-44) % Bell % (Auto) (2-6) % Eos % (Auto) (2-4) % Baso % (Auto) (0-1) % Sodium 132 L (140-148) mmol/L Potassium 4.5 (3.6-5.2) mmol/L Chloride 102 (100-108) mmol/L Carbon Dioxide 14 L (21-32) mmol/L Anion Gap 20.5 H (5.0-14.0) mmol/L BUN 25 H (7-18) mg/dL Creatinine 1.6 H (0.8-1.3) mg/dL Est Cr Clr Drug Dosing 64.19 mL/min Estimated GFR (MDRD) 48 L (>60) Glucose 217 H (74-106) mg/dL POC Glucose 219 H 198 H (74-106) mg/dL Lactic Acid (0.4-2.0) mmol/L Calcium 7.7 L (8.5-10.1) mg/dL Phosphorus (2.5-4.9) mg/dL Magnesium (1.8-2.4) mg/dL Lipase (73-393) U/L 02/17/21 02/17/21 02/18/21 Range/Units 22:49 23:57 00:38 WBC (4.5-11.0) K/uL RBC (4.30-5.90) M/uL Hgb (12.0-15.0) g/dL Hct (40.0-54.0) % MCV (80-98) fL MCH (27-31) pg MCHC (32-36) % Plt Count (150-400) K/uL Neut % (Auto) (36-66) % Lymph % (Auto) (24-44) % Bell % (Auto) (2-6) % Eos % (Auto) (2-4) % Baso % (Auto) (0-1) % Sodium (140-148) mmol/L Potassium 4.2 (3.6-5.2) mmol/L Chloride (100-108) mmol/L Carbon Dioxide (21-32) mmol/L Anion Gap (5.0-14.0) mmol/L BUN (7-18) mg/dL Creatinine (0.8-1.3) mg/dL Est Cr Clr Drug Dosing mL/min Estimated GFR (MDRD) (>60) Glucose (74-106) mg/dL POC Glucose 208 H 187 H (74-106) mg/dL Lactic Acid (0.4-2.0) mmol/L Calcium (8.5-10.1) mg/dL Phosphorus (2.5-4.9) mg/dL Magnesium (1.8-2.4) mg/dL Lipase (73-393) U/L 02/18/21 02/18/21 02/18/21 Range/Units 00:58 02:01 02:30 WBC (4.5-11.0) K/uL RBC (4.30-5.90) M/uL Hgb (12.0-15.0) g/dL Hct (40.0-54.0) % MCV (80-98) fL MCH (27-31) pg MCHC (32-36) % Plt Count (150-400) K/uL Neut % (Auto) (36-66) % Lymph % (Auto) (24-44) % Bell % (Auto) (2-6) % Eos % (Auto) (2-4) % Baso % (Auto) (0-1) % Sodium 134 L (140-148) mmol/L Potassium 3.9 (3.6-5.2) mmol/L Chloride 103 (100-108) mmol/L Carbon Dioxide 19 L (21-32) mmol/L Anion Gap 15.9 H (5.0-14.0) mmol/L BUN 23 H (7-18) mg/dL Creatinine 1.6 H (0.8-1.3) mg/dL Est Cr Clr Drug Dosing 64.19 mL/min Estimated GFR (MDRD) 48 L (>60) Glucose 180 H (74-106) mg/dL POC Glucose 198 H 216 H (74-106) mg/dL Lactic Acid (0.4-2.0) mmol/L Calcium 7.7 L (8.5-10.1) mg/dL Phosphorus 2.0 L (2.5-4.9) mg/dL Magnesium 1.9 (1.8-2.4) mg/dL Lipase (73-393) U/L 02/18/21 02/18/21 02/18/21 Range/Units 03:01 04:02 04:30 WBC (4.5-11.0) K/uL RBC (4.30-5.90) M/uL Hgb (12.0-15.0) g/dL Hct (40.0-54.0) % MCV (80-98) fL MCH (27-31) pg MCHC (32-36) % Plt Count (150-400) K/uL Neut % (Auto) (36-66) % Lymph % (Auto) (24-44) % Bell % (Auto) (2-6) % Eos % (Auto) (2-4) % Baso % (Auto) (0-1) % Sodium (140-148) mmol/L Potassium 4.1 (3.6-5.2) mmol/L Chloride (100-108) mmol/L Carbon Dioxide (21-32) mmol/L Anion Gap (5.0-14.0) mmol/L BUN (7-18) mg/dL Creatinine (0.8-1.3) mg/dL Est Cr Clr Drug Dosing mL/min Estimated GFR (MDRD) (>60) Glucose (74-106) mg/dL POC Glucose 163 H 152 H (74-106) mg/dL Lactic Acid (0.4-2.0) mmol/L Calcium (8.5-10.1) mg/dL Phosphorus (2.5-4.9) mg/dL Magnesium (1.8-2.4) mg/dL Lipase (73-393) U/L 02/18/21 02/18/21 02/18/21 Range/Units 04:30 04:59 05:59 WBC 16.4 H (4.5-11.0) K/uL RBC 4.11 L (4.30-5.90) M/uL Hgb 13.1 (12.0-15.0) g/dL Hct 34.9 L (40.0-54.0) % MCV 85 (80-98) fL MCH 32 H (27-31) pg MCHC 38 H (32-36) % Plt Count 212 (150-400) K/uL Neut % (Auto) 85.8 H (36-66) % Lymph % (Auto) 4.2 L (24-44) % Bell % (Auto) 9.8 H (2-6) % Eos % (Auto) 0.1 L (2-4) % Baso % (Auto) 0.1 (0-1) % Sodium (140-148) mmol/L Potassium (3.6-5.2) mmol/L Chloride (100-108) mmol/L Carbon Dioxide (21-32) mmol/L Anion Gap (5.0-14.0) mmol/L BUN (7-18) mg/dL Creatinine (0.8-1.3) mg/dL Est Cr Clr Drug Dosing mL/min Estimated GFR (MDRD) (>60) Glucose (74-106) mg/dL POC Glucose 172 H 178 H (74-106) mg/dL Lactic Acid (0.4-2.0) mmol/L Calcium (8.5-10.1) mg/dL Phosphorus (2.5-4.9) mg/dL Magnesium (1.8-2.4) mg/dL Lipase (73-393) U/L 02/18/21 02/18/21 02/18/21 Range/Units 06:25 07:01 07:58 WBC (4.5-11.0) K/uL RBC (4.30-5.90) M/uL Hgb (12.0-15.0) g/dL Hct (40.0-54.0) % MCV (80-98) fL MCH (27-31) pg MCHC (32-36) % Plt Count (150-400) K/uL Neut % (Auto) (36-66) % Lymph % (Auto) (24-44) % Bell % (Auto) (2-6) % Eos % (Auto) (2-4) % Baso % (Auto) (0-1) % Sodium 135 L (140-148) mmol/L Potassium 3.9 (3.6-5.2) mmol/L Chloride 104 (100-108) mmol/L Carbon Dioxide 20 L (21-32) mmol/L Anion Gap 14.9 H (5.0-14.0) mmol/L BUN 19 H (7-18) mg/dL Creatinine 1.4 H (0.8-1.3) mg/dL Est Cr Clr Drug Dosing 73.36 mL/min Estimated GFR (MDRD) 56 L (>60) Glucose 195 H (74-106) mg/dL POC Glucose 193 H 224 H (74-106) mg/dL Lactic Acid (0.4-2.0) mmol/L Calcium 7.7 L (8.5-10.1) mg/dL Phosphorus (2.5-4.9) mg/dL Magnesium (1.8-2.4) mg/dL Lipase (73-393) U/L 02/18/21 02/18/21 02/18/21 Range/Units 08:28 08:59 09:57 WBC (4.5-11.0) K/uL RBC (4.30-5.90) M/uL Hgb (12.0-15.0) g/dL Hct (40.0-54.0) % MCV (80-98) fL MCH (27-31) pg MCHC (32-36) % Plt Count (150-400) K/uL Neut % (Auto) (36-66) % Lymph % (Auto) (24-44) % Bell % (Auto) (2-6) % Eos % (Auto) (2-4) % Baso % (Auto) (0-1) % Sodium (140-148) mmol/L Potassium 4.0 (3.6-5.2) mmol/L Chloride (100-108) mmol/L Carbon Dioxide (21-32) mmol/L Anion Gap (5.0-14.0) mmol/L BUN (7-18) mg/dL Creatinine (0.8-1.3) mg/dL Est Cr Clr Drug Dosing mL/min Estimated GFR (MDRD) (>60) Glucose (74-106) mg/dL POC Glucose 190 H 178 H (74-106) mg/dL Lactic Acid (0.4-2.0) mmol/L Calcium (8.5-10.1) mg/dL Phosphorus 1.1 L (2.5-4.9) mg/dL Magnesium 1.9 (1.8-2.4) mg/dL Lipase (73-393) U/L 02/18/21 02/18/21 02/18/21 Range/Units 10:29 11:08 13:05 WBC (4.5-11.0) K/uL RBC (4.30-5.90) M/uL Hgb (12.0-15.0) g/dL Hct (40.0-54.0) % MCV (80-98) fL MCH (27-31) pg MCHC (32-36) % Plt Count (150-400) K/uL Neut % (Auto) (36-66) % Lymph % (Auto) (24-44) % Bell % (Auto) (2-6) % Eos % (Auto) (2-4) % Baso % (Auto) (0-1) % Sodium 134 L (140-148) mmol/L Potassium 3.9 (3.6-5.2) mmol/L Chloride 103 (100-108) mmol/L Carbon Dioxide 22 (21-32) mmol/L Anion Gap 12.9 (5.0-14.0) mmol/L BUN 17 (7-18) mg/dL Creatinine 1.4 H (0.8-1.3) mg/dL Est Cr Clr Drug Dosing 73.99 mL/min Estimated GFR (MDRD) 56 L (>60) Glucose 179 H (74-106) mg/dL POC Glucose 179 H 253 H (74-106) mg/dL Lactic Acid (0.4-2.0) mmol/L Calcium 7.8 L (8.5-10.1) mg/dL Phosphorus (2.5-4.9) mg/dL Magnesium (1.8-2.4) mg/dL Lipase (73-393) U/L RAVINDER Results - Last 24 hrs: Microbiology 02/17/21 11:20 Aerobic Blood Culture - Preliminary Blood - Arm, Left NO GROWTH AFTER 1 DAY Anaerobic Blood Culture - Preliminary NO GROWTH AFTER 1 DAY 02/17/21 11:20 Aerobic Blood Culture - Preliminary Blood - Venous NO GROWTH AFTER 1 DAY Anaerobic Blood Culture - Preliminary NO GROWTH AFTER 1 DAY Med Orders - Current: Current Medications Acetaminophen (Acetaminophen 325 Mg Tab) 650 mg PO Q4H PRN PRN Reason: Pain (Mild 1-3)/fever Dextrose/Water (50% Dextrose In Water 50 Ml Syringe) 50 ml IVPUSH ASDIRECTED PRN PRN Reason: Hypoglycemia Glucagon (Glucagon,Human Recombinant 1 Mg Vial) 1 mg IM ASDIRECTED PRN PRN Reason: Hypoglycemia Sodium Chloride (Normal Saline) 2,000 mls @ 500 mls/hr IV .CONTINUOUS PRN PRN Reason: Blood Glucose Last Admin: 02/17/21 19:02 Dose: 250 mls/hr Documented by: Dextrose/Sodium Chloride (Dextrose 5%-1/2 Ns) 1,000 mls @ 150 mls/hr IV .CONTINUOUS PRN PRN Reason: Blood Glucose Last Admin: 02/18/21 05:01 Dose: 150 mls/hr Documented by: Potassium Chloride 20 meq/ (Premix) 100 mls @ 50 mls/hr IV ASDIRECTED PRN PRN Reason: LOW POTASSIUM Potassium Chloride 20 meq/ (Premix) 100 mls @ 50 mls/hr IV Q2H PRN PRN Reason: Hypokalemia Potassium Chloride 20 meq/ (Premix) 100 mls @ 50 mls/hr IV Q2H PRN PRN Reason: Hypokalemia Magnesium Sulfate (Magnesium Sulfate In Water 2 Gm/50 Ml) 50 mls @ 25 mls/hr IV ONETIME PRN PRN Reason: low magnesium Sodium Phosphate 60 mmole/ (Sodium Chloride) 270 mls @ 62.5 mls/hr IV ONETIME PRN PRN Reason: Low phophorus Insulin Glargine (Insulin Glargine,Human Rec. Analog 100 Units/Ml 3 Ml Pen) 28 units SUBCUT DAILY [facility] Last Admin: 02/18/21 10:00 Dose: 28 units Documented by: Insulin Human Lispro (Insulin Lispro 100 Unit/Ml 3 Ml Kwikpen) 0 unit SUBCUT QIDACANDBED [facility]; Protocol Last Admin: 02/18/21 11:24 Dose: 2 units Documented by: Insulin Human Lispro (Insulin Lispro 100 Unit/Ml 3 Ml Kwikpen) 0 unit SUBCUT TIDMEALS [facility] Last Admin: 02/18/21 11:25 Dose: 4 units Documented by: Ondansetron HCl (Ondansetron 4 Mg/2 Ml Sdv) 4 mg IV Q4H PRN PRN Reason: Nausea/Vomiting Potassium Chloride (Potassium Chloride 10% 20 Meq/15 Ml Soln 15 Ml Ud Cup) 20 meq PO NOW PRN PRN Reason: Hypokalemia Last Admin: 02/18/21 07:01 Dose: 20 meq Documented by: Potassium Chloride (Potassium Chloride 10% 20 Meq/15 Ml Soln 15 Ml Ud Cup) 40 meq PO NOW PRN PRN Reason: Hypokalemia Potassium Chloride (Potassium Chloride 10% 20 Meq/15 Ml Soln 15 Ml Ud Cup) 40 meq PO Q2H PRN PRN Reason: Hypokalemia Sodium Chloride (Sodium Chloride 0.9% 10 Ml Syringe) 10 ml FLUSH ASDIRECTED PRN PRN Reason: Keep Vein Open Discontinued Medications Sodium Chloride (Normal Saline) 1,000 mls @ 500 mls/hr IV ASDIRECTED [facility] Last Admin: 02/17/21 11:25 Dose: 500 mls/hr Documented by: Insulin Regular in 0.9 % NACL (Myxredlin In Ns 100 Unit/100 Ml) 100 unit in 100 mls @ 10.796 mls/hr IV ASDIRECTED [facility] Last Admin: 02/17/21 11:25 Dose: 0.14 units/kg/hr, 10.796 mls/hr Documented by: Piperacillin/Tazobactam/ (Dextrose 4.5 gm/ Premix) 100 mls @ 200 mls/hr IV ONETIME ONE Stop: 02/17/21 12:59 Last Admin: 02/17/21 12:47 Dose: 200 mls/hr Documented by: Vancomycin HCl 1.6 gm/ Sodium (Chloride) 250 mls @ 167 mls/hr IV ONETIME ONE Stop: 02/17/21 14:29 Last Admin: 02/17/21 13:48 Dose: 167 mls/hr Documented by: Insulin Regular in 0.9 % NACL (Myxredlin In Ns 100 Unit/100 Ml) 100 mls @ 7.711 mls/hr IV ASDIRECTED [facility]; Protocol Stop: 02/18/21 10:30 Last Infusion: 02/18/21 10:02 Dose: 0.03 units/kg/hr, 2 mls/hr Documented by: Piperacillin/Tazobactam/ (Dextrose 3.375 gm/ Premix) 50 mls @ 100 mls/hr IV Q6H [facility] Last Admin: 02/18/21 08:08 Dose: 100 mls/hr Documented by: Vancomycin HCl 1.2 gm/ Sodium (Chloride) 250 mls @ 167 mls/hr IV Q12H [facility] Last Admin: 02/18/21 02:02 Dose: 167 mls/hr Documented by: Loratadine (Loratadine 10 Mg Tab) 10 mg PO ONETIME ONE Stop: 02/18/21 09:01 Last Admin: 02/18/21 09:04 Dose: 10 mg Documented by: Prochlorperazine Edisylate (Prochlorperazine 10 Mg/2 Ml Sdv) 5 mg IVPUSH ONETIME ONE Stop: 02/17/21 11:04 Last Admin: 02/17/21 11:26 Dose: 5 mg Documented by: Sodium Chloride (Sodium Chloride 0.9% 10 Ml Syringe) 10 ml FLUSH ASDIRECTED PRN PRN Reason: Keep Vein Open Last Admin: 02/17/21 11:26 Dose: 10 ml Documented by: Vancomycin HCl (Vancomycin 1 Gm Sdv) 1 gm IV .PHARMACY TO DOSE [facility] Stop: 02/17/21 16:00
== END 2021-02-18 14:19 | disposition home or self-care (01) | DRG 638 ==
LOC: JP.ED 10:52 → JP.ICU 14:01
PROVIDERS: ADMIT Hospitalist; ATTEND Internal Medicine
DX: E10.10 Type 1 diabetes mellitus with ketoacidosis without coma (principal); N17.9 Acute kidney failure, unspecified; K52.9 Noninfective gastroenteritis and colitis, unspecified; Z88.5 Allergy status to narcotic agent; E87.5 Hyperkalemia
CPT/HCPCS: 36415; 36600; 71045; 71045-26; 74176; 80048; 80053; 81001; 82009; 82803; 82947; 83605; 83690; 83735; 84100; 84132; 84145; 85025; 87040; 93005; 96374; 99285-25; A9270-GY; J0780; J1815; J1815-GY; J2543; J3370; J7030; J7042; J7050